=== PATIENT | female | born 1965 | race Caucasian/White ===

== ENCOUNTER → 2019-12-03 | Outpatient (CLI) | payer MEDICARE, OTHER ==
[2019-12-03 13:36] VITALS: BP 133/84; PULSE 93; TEMP 98.5; BMI 35.6
--- NOTE | 2019-12-03 15:20 | FL ---
EXAMINATION TYPE: FL barium swallow DATE OF EXAM: 12/03/2019 COMPARISON: None HISTORY: Dysphasia TECHNIQUE: A single contrast UGI study is performed. Thin barium was utilized. FINDINGS: Fluoroscopy time: 18 seconds Images: 19 LAP-BAND is in a normal position. No free air is evident. Esophagus dilates to normal caliber has nor mal contour to the gastroesophageal junction. Gastroesophageal junction opens to normal caliber. No h esitancy passing through the normally positioned LAP-BAND is evident. IMPRESSIONS: 1. Normal limited esophagram LAP-BAND. No stenosis is evident.
--- NOTE | 2019-12-03 17:23 | P.BASOAP ---
Subjective Progress Note Date: 12/03/19 Principal diagnosis: Morbid obesity Patient presents the bariatric clinic with complaints of intermittent nausea vomiting, pain and her lap band port site, increasing reflux and dysphagia. Patient states her band was emptied at the time of an endoscopy in late 2009. We have of visit from late 2009 where 3 mL was added back to the port. She initially came in thinking her band was emptied. She was sent for an upper GI today in the clinic in the upper GI shows no definite abnormalities. This was after her band was emptied. The patient is interested in having her band removed. Objective - Vital Signs Vital signs: Vital Signs Temp 98.5 F 12/03/19 13:33 Pulse 93 12/03/19 13:33 Resp BP 133/84 12/03/19 13:33 Pulse Ox Intake & Output 12/02/19 12/03/19 12/03/19 18:59 06:59 18:59 Weight 86.954 kg - Exam Abdomen: Soft, nontender, nondistended Assessment/Plan (1) Morbid obesity Narrative/Plan: 54-year-old female with nausea vomiting, dysphagia, pain, reflux. Etiology of the patient's symptoms seems to be on the basis of the indwelling LAP-BAND. Her band was emptied and the office today. -2.8 mL. Will schedule for lap band removal. Plan: Date: 12/03/19 Initial Weight: Initial BMI: Current Weight: 86.954 kg Current BMI: 35.6 Type of Surgery: Total Volume in Band: 0 Previous Volume: Volume Removed: 2.8 Volume Added: Band Size:
== END | disposition home or self-care (01) ==
LOC: BARWHC3 12:58
PROVIDERS: ATTEND Surgery
DX: E66.01 Morbid (severe) obesity due to excess calories (principal); Z46.51 Encounter for fitting and adjustment of gastric lap band; R13.10 Dysphagia, unspecified; Z68.35 Body mass index [BMI] 35.0-35.9, adult
CPT/HCPCS: 74220; G0463; 99213

== ENCOUNTER 2020-04-17 06:52 | Day surgery (SDC) | payer MEDICARE, OTHER ==
[2020-04-16 09:50] VITALS: BMI 34.7
--- NOTE | 2020-04-16 15:46 | P.GSHP ---
History of Present Illness H&P Date: 04/16/20 Chief Complaint: Dysphagia, GERD, vomiting, band intolerance Patient last seen in the bariatric center last fall. Patient having complaints of frequent vomiting, reflux, and pain. Patient's lap band was emptied at that time. Symptoms persist. She is interested in lap band removal. Past Medical History Past Medical History: Cancer, Hyperlipidemia, Hypertension, Sleep Apnea/CPAP/BIPAP Additional Past Medical History / Comment(s): no cpap, hx of Hep C, states no tx and not active, recent tx for UTI, DVT at [facility] at [facility], hx of anal ca, chemo and radiation 2013 History of Any Multi-Drug Resistant Organisms: None Reported Past Surgical History: Bariatric Surgery, Breast Surgery, Cholecystectomy, Hysterectomy, Orthopedic Surgery Additional Past Surgical History / Comment(s): bilateral knee arthroscopy x 4, anal cancer mass removed, benign left breast lesion removed, mediport in and removed, jonah carpal tunnel, neck fusion, lap band 2006 Past Anesthesia/Blood Transfusion Reactions: Postoperative Nausea & Vomiting (PONV) Smoking Status: Former smoker Medications and Allergies Home Medications Medication Instructions Recorded Confirmed Type Atorvastatin [Lipitor] 20 mg PO DAILY 12/04/19 04/16/20 History HYDROcodone/APAP 5-325MG [[place] 1 tab PO Q8H PRN 12/04/19 04/16/20 History 5-325] Lisinopril [Prinivil] 10 mg PO QAM 12/04/19 04/16/20 History Albuterol Sulfate [Proair Hfa] 1 - 2 puff INHALATION Q6HR PRN 04/16/20 04/16/20 History Cephalexin [Keflex] 500 mg PO Q12HR 04/16/20 04/16/20 History Ergocalciferol (Vitamin D2) 1,250 mcg PO FR 04/16/20 04/16/20 History [Vitamin D2 (50,000 Iu)] Methadone [Dolophine] 2.5 mg PO Q12H 04/16/20 04/16/20 History valACYclovir HCL [Valtrex] 500 mg PO DAILY PRN 04/16/20 04/16/20 History Allergies Allergy/AdvReac Type Severity Reaction Status Date / Time adhesive Allergy Rash/Hives Verified 04/16/20 09:37 ceftriaxone [From Rocephin] Allergy tinnitus, Verified 04/16/20 09:37 heart racing citalopram Allergy "felt Verified 04/16/20 09:37 weird" Iodinated Contrast Media Allergy Rash/Hives Verified 04/16/20 09:37 morphine Allergy Hallucinati Verified 04/16/20 09:37 ons venlafaxine [From Effexor] Allergy "tense jaw" Verified 04/16/20 09:37 amitriptyline AdvReac "sleep Verified 04/16/20 09:37 walking" Sulfa (Sulfonamide AdvReac Nausea & Verified 04/16/20 09:37 Antibiotics) Vomiting steri strips Allergy "cellulitis Uncoded 04/16/20 09:37 " Surgical - Exam Physical exam: General: Well-developed, well-nourished HEENT: Normocephalic, sclerae nonicteric Abdomen: Nontender, nondistended Extremities: No edema Neuro: Alert and oriented Assessment and Plan (1) Vomiting Narrative/Plan: 54-year-old female with intractable dysphagia, reflux, vomiting with indwelling LAP-BAND. Patient also complaining of pain at the port site. We'll proceed with laparoscopic lap band removal, possible open tomorrow. The risks of bleeding, infection, stenosis, stricture, leak, abscess, fistula formation, peritonitis, reflux, vomiting, conversion to an open procedure, CT, PE, DVT, and were discussed. The patient understands and wishes to proceed. Status: Acute Code(s): R11.10 - VOMITING, UNSPECIFIED SNOMED Code(s): 618743845
[~2020-04-17 06:52] MED LIST: DEXAMETHASONE SOD PHOSPHATE 4 MG/ML 1 ML VIAL IV ONE; LACTATED RINGERS 1,000 ML IV SCH; MIDAZOLAM 2 MG/2 ML VIAL IV PRN; ONDANSETRON 4 MG/2 ML VIAL IVP ONE; SCOPOLAMINE 1.5MG/72HR PATCH TRANSDERM ONE
[2020-04-17] MEDS ORDERED: fentaNYL (PF) 50 MCG/ML 2 ML AMP IV PRN (07:00)
[2020-04-17] MEDS ORDERED: HEPARIN SODIUM,PORCINE 5,000 UNIT/ML 1 ML VIAL ONE (07:19)
[2020-04-17 07:43] LABS: Glucose,Whole Blood 121 mg/dL (75-99)
[2020-04-17] MEDS ORDERED: LIDOCAINE 1% (10MG/ML) FOR IV START INTRADERMA ONE (07:46)
[2020-04-17] MEDS ORDERED: HEPARIN SODIUM,PORCINE 5,000 UNIT/ML 1 ML VIAL SQ ONE (07:48)
[2020-04-17 07:54] VITALS: TEMP 97.1
[2020-04-17] MEDS ORDERED: PROPOFOL 10 MG/ML 20 ML VIAL IV ONE (07:57)
[2020-04-17] MEDS ORDERED: LIDOCAINE 1% INJ 10MG/ML (20 ML MDV) ONE (07:57)
[2020-04-17] MEDS ORDERED: SUCCINYLCHOLINE CHLORIDE 100 MG/5 ML SYR IV ONE (07:57)
[2020-04-17] MEDS ORDERED: HYDROmorphone (PF) 1 MG/ML ONE (07:57)
[2020-04-17] MEDS ORDERED: ROCURONIUM 10 MG/ML (10 ML VIAL) IV ONE (07:57)
[2020-04-17] MEDS ORDERED: GLYCOPYRROLATE 0.2 MG/ML 2 ML VIAL ONE (07:57)
[2020-04-17] MEDS ORDERED: fentaNYL (PF) 50 MCG/ML 2 ML AMP ONE (07:57)
[2020-04-17] MEDS ORDERED: NEOSTIGMINE 1 MG/ML 10 ML VIAL ONE (07:57)
[2020-04-17] MEDS ORDERED: MIDAZOLAM 2 MG/2 ML VIAL ONE (07:57)
[2020-04-17 08:13] LABS: Basophils # (A) 0.1 k/uL (0-0.2); Basophils % (A) 1 %; Eosinophils # (A) 0.2 k/uL (0-0.7); Eosinophils % (A) 3 %; HCT 38.2 % (34.0-46.0); HGB 13.1 gm/dL (11.4-16.0); Lymphocytes # (A) 2.4 k/uL (1.0-4.8); Lymphocytes % (A) 36 %; MCH 29.1 pg (25.0-35.0); MCHC 34.3 g/dL (31.0-37.0); MCV 84.8 fL (80.0-100.0); Mean Platelet Volume 7.5; Monocytes # (A) 0.3 k/uL (0-1.0); Monocytes % (A) 5 %; Neutrophils # (A) 3.7 k/uL (1.3-7.7); Neutrophils % (A) 55 %; Platelet Count 237 k/uL (150-450); RDW 11.9 % (11.5-15.5); WBC 6.9 k/uL (3.8-10.6)
[2020-04-17] MEDS ORDERED: BUPIVACAINE (PF) 0.5% 30 ML VIAL SQ ONE ×2 (09:01)
[2020-04-17] MEDS ORDERED: NALOXONE 0.4 MG/ML 1 ML VIAL IV PRN (09:28)
[2020-04-17] MEDS ORDERED: HYDROcodone/APAP 5-325MG 1 EACH TAB PO PRN (09:28)
--- NOTE | 2020-04-17 09:31 | P.OP ---
Date of Procedure: 04/17/20 Procedure(s) Performed: PREOPERATIVE DIAGNOSIS: Band intolerance/abdominal pain POSTOPERATIVE DIAGNOSIS: Same PROCEDURE: Laparoscopic lap band removal SURGEON: Shi EBL: Minimal ANESTHESIA: General COMPLICATIONS: None OPERATIVE PROCEDURE: The patient was brought and placed on the operating room table in the supine position. The patient was placed under general anesthesia at that time. The patient was then placed in lithotomy. The abdomen was prepped and draped in the usual sterile fashion. The previous port incision was localized and then incised using a scalpel. The port was easily excised using electrocautery. Entrance into the perineal cavity occurred using a 5 mm optical trocar through the old trocar entrance site. Insufflation took place to 15 mmHg. A right subxiphoid 5 mm trocar was placed. This was then removed and the medium Renny hook was used to elevate the left lobe of the liver anteriorly. An additional 5 mm trocar was placed under direct visualization in the left lateral upper quadrant. The original 5 mm trocar was switched to a 15 mm trocar. A additional 5 mm trocar was placed in the right upper quadrant under direct dilatation. There were adhesions to the band in the buccal that were lysed using both the LigaSure and electrocautery. The band was then cut using the laparoscopic marcos. The band was then removed easily in 2 portions through the 15 mm trocar site. The stomach itself was inspected and revealed no evidence of erosion or prolapse. The trochars were removed. The fascia at the 15 mm site was closed using a [id number] 0 Vicryl stitch. The subcutaneous tissues at the port site was closed using a 3-0 Vicryl suture. The skin at all 4 incision sites were closed using 4-0 Monocryl sutures. Steri-Strips and sterile dressings were then applied. DISPOSITION: Stable to recovery room
[2020-04-17] MEDS ORDERED: LACTATED RINGERS 1,000 ML IV ONE (09:34)
[2020-04-17 10:18] VITALS: RESP 16
[2020-04-17 13:50] VITALS: BP 118/84; PULSE 80
== END 2020-04-17 14:16 | disposition home or self-care (01) ==
LOC: OR 06:52
PROVIDERS: ATTEND Surgery
DX: K95.09 Other complications of gastric band procedure (principal); R13.10 Dysphagia, unspecified; K21.9 Gastro-esophageal reflux disease without esophagitis; E78.5 Hyperlipidemia, unspecified; I10 Essential (primary) hypertension; E11.9 Type 2 diabetes mellitus without complications; G47.33 Obstructive sleep apnea (adult) (pediatric); Z87.440 Personal history of urinary (tract) infections; Z85.048 Personal history of other malignant neoplasm of rectum, rectosigmoid junction, and anus; Z92.21 Personal history of antineoplastic chemotherapy; Z92.3 Personal history of irradiation; Z90.49 Acquired absence of other specified parts of digestive tract; Z90.710 Acquired absence of both cervix and uterus; Z98.890 Other specified postprocedural states; Z98.1 Arthrodesis status; Z87.891 Personal history of nicotine dependence; Z79.891 Long term (current) use of opiate analgesic; Z79.899 Other long term (current) drug therapy; Z88.1 Allergy status to other antibiotic agents; Z91.041 Radiographic dye allergy status; Z88.2 Allergy status to sulfonamides; Z88.8 Allergy status to other drugs, medicaments and biological substances; Z91.09 Other allergy status, other than to drugs and biological substances
CPT/HCPCS: 85025; 43774; J2250; J1644; J1100; J2710; J0690; J2405; J2001; J3010; J1170; J0330; J2704; J1790